=== PATIENT | female | born 1965 | race Asian ===

== ENCOUNTER 2019-08-11 00:44 | Emergency (ER) | payer OTHER ==
[~2019-08-11] VITALS: Ht 162.6 cm; Wt 70.0 kg
[2019-08-11] MEDS ORDERED: AMLO1TAB13 PO (01:02)
[2019-08-11 01:10] VITALS: BP 142/80
[2019-08-11] MEDS ORDERED: CLINDAMYCIN HCL 150 MG CAPSULE PO ONE (01:30)
[2019-08-11] MEDS ORDERED: IBUPROFEN 600 MG TABLET PO ONE (01:30)
== END 2019-08-11 01:57 | disposition home or self-care (01) ==
LOC: EMS 00:46
DX: K08.89 Other specified disorders of teeth and supporting structures (principal); I10 Essential (primary) hypertension; Z88.0 Allergy status to penicillin